=== PATIENT | male | born 1960 | race Caucasian/White ===

== ENCOUNTER 2020-06-25 15:17 | Outpatient (CLI) | payer OTHER, SELFPAY | END 2020-06-25 15:18 | disposition home or self-care (01) | LOC: ANHCOVIDVC 15:17 | PROVIDERS: PCP Family Medicine | DX: Z23 Encounter for immunization (principal) | CPT/HCPCS: 0001A; 91300 ==

== ENCOUNTER → 2020-07-08 13:35 | Outpatient (CLI) | payer OTHER, SELFPAY ==
--- NOTE | ~2020-07-08 | XR_ITS ---
XR lumbar spine 2-3V 07/08/2020 13:53 Indication: Low back pain Procedure: 3 views lumbar spine Comparison: 11/27/2014 Findings: There is grade 1 degenerative spondylolisthesis at L4-5. There are prominent bridging osteo phytes at most levels. There is disc narrowing at L3-4 and L5-S1. There is facet hypertrophy at L4-5. No acute fracture or traumatic malalignment. Mild levocurvature of the lumbar spine. Sacral foramen are symmetric. Impression: 1: Moderate lumbar spondylosis with grade 1 degenerative spondylolisthesis at L4-5. Reviewed, dictated and finalized at location B. Impression: 1: Moderate lumbar spondylosis with grade 1 degenerative spondylolisthesis at L 4-5.
== END ==
PROVIDERS: PCP Family Medicine; Visit Provider Physician Assistant
DX: M47.896 Other spondylosis, lumbar region (principal)
CPT/HCPCS: 72100

== ENCOUNTER 2020-07-16 15:14 | Outpatient (CLI) | payer OTHER, SELFPAY | END 2020-07-16 15:15 | disposition home or self-care (01) | LOC: ANHCOVIDVC 15:14 | PROVIDERS: PCP Family Medicine | DX: Z23 Encounter for immunization (principal) | CPT/HCPCS: 0002A; 91300 ==

== ENCOUNTER 2025-01-02 15:21 | Outpatient (CLI) | payer MEDICARE, SELFPAY ==
--- OUTSIDE RECORDS SUMMARY | 2025-01-02 15:23 | XMS_ITS | Clinical Summary ---
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 Name Role Phone Unavailable Primary Care Provider Unavailabl e Social History Tobacco Use Types Packs/Day Years Used Date Smoking Tobacco: Never Assessed Sex and Gender Information Value Date Recorded Sex Assigned at Not on file Legal Sex Male 12:58 PM CDT Gender Identity Not on file Sexual Orientation Not on file Plan of Treatment Health Maintenance Due Date Last Done Comments Colorectal Cancer Screening Colonoscopy (10 Years) 1960 Annual Physical 08/17/1963 Hepatitis C 1978 DTaP, Tdap and Td Vaccines ( 1 - Tdap) 08/17/1979 Pneumococcal Vaccine: 50+ Years (1 of 1 - PCV) 2010 Zoster Vaccines (1 of 2) 2010 COVID-19 Vaccine (4 - 2024-2 6 season) 2024 04/19/2021, 07/16/2020, 06/25/2020 RSV Immunization or 60+ Years (1 - 1-dose 75+ series) 08/17/2035 Meningococcal B Vaccine Aged Out No l onger eligible based on patient's age to complete this topic Meningococcal Vaccine Aged Out No meenakshi elizabeth eligible based on patient's age to complete this topic RSV Immunizations Under 20 Months Aged Out No longer eligible b ased on patient's age to complete this topic
--- NOTE | 2025-01-02 15:35 | ECHO_ITS ---
Patient Info Name: Kadeem Guerin Age: 64 years : 1960 Gender: Male Ht: 67 in Wt: 370 lbs BSA: 2.92 m2 HR: 96 bpm BP: 133 / 115 mmHg Technical Quality: Fair Exam Date: 01/02/2025 4:05 PM Patient Status: O Admit Date: 01/02/2025 Exam Type: CA echo doppler color flow Complete two-dimensional, color flow and Doppler transthoracic echocardiogram is performed. Ice Cream Mixer: Dede Nava Attending Provider: Denise Alejandre Summary 1. Complete two-dimensional, color flow and Doppler transthoracic echocardiogram is performed. 2. Left ventricular chamber dimension is severely enlarged. 3. Left ventricular systolic function is moderately globally reduced, estimated at 40-45. 4. The left ventricular diastolic function is abnormal. 5. E/e' 17 is elevated. 6. Right ventricular chamber dimension is mildly enlarged. 7. Left atrial chamber dimension is moderately enlarged. 8. Right atrial chamber dimension is mildly enlarged. 9. There is trace aortic valve regurgitation. 10. There is mild to moderate mitral valve regurgitation. 11. There is moderate tricuspid valve regurgitation. 12. Moderate pulmonary hypertension, estimated pulmonary arterial systolic pressure is 49 mmHg. 13. Dilated inferior vena cava with >50% collapse upon inspiration consistent with elevated right atrial pressure, 10 mmHg. Left Ventricle E/e' 17 is elevated. Left ventricular chamber dimension is severely enlarged. Left ventricular systolic function is moderately globally reduced, estimated at 40-45. The left ventricular diastolic function is abnormal. Right Ventricle Right ventricular chamber dimension is mildly enlarged. Right ventricular systolic function is normal and with normal TAPSE 2.3 cm. Left Atria Left atrial chamber dimension is moderately enlarged. Right Atria Right atrial chamber dimension is mildly enlarged. Aortic Valve The aortic valve is trileaflet. There is no aortic valve stenosis. There is trace aortic valve regurgitation. Pulmonic Valve There is no pulmonic regurgitation. Mitral Valve There is no mitral valve stenosis. There is mild to moderate mitral valve regurgitation. Tricuspid Valve There is moderate tricuspid valve regurgitation. Moderate pulmonary hypertension, estimated pulmonary arterial systolic pressure is 49 mmHg. Pericardium/Pleural There is no pericardial effusion. Inferior Vena Cava Dilated inferior vena cava with >50% collapse upon inspiration consistent with elevated right atrial pressure, 10 mmHg. Aorta The aortic root size at the sinus of Valsalva is normal. Left Ventricular Outflow Tract Name Value Normal LVOT 2D LVOT Diameter 2.0 cm LVOT Doppler LVOT Peak Velocity 135 cm/s LVOT Peak Gradient 6 mmHg LVOT Mean Gradient 3 mmHg LVOT VTI 27 cm LVOT VTI/AV VTI Ratio 0.9 LVOT Stroke Volume 86 ml LVOT CO 16.7 l/min LVOT CI 5.7 l/min/m2 Pulmonic Valve Name Value Normal PV Doppler PV Peak Velocity 122 cm/s PV Peak Gradient 6 mmHg Mitral Valve Name Value Normal MV Diastolic Function MV E Peak Velocity 164 cm/s MV A Peak Velocity 130 cm/s MV E/A 1.3 MV Decel Time (PW) 142 ms MV Annular TDI MV E/e' (Septal) 26.5 MV E/e' (Lateral) 13.4 MV E/e' (Average) 19.9 Tricuspid Valve Name Value Normal TV Regurgitation Doppler TR Peak Velocity 312 cm/s TR Peak Gradient 36 mmHg Estimated PAP/RSVP RA Pressure 10 mmHg <=5 PA Systolic Pressure 49 mmHg <36 RV Systolic Pressure 49 mmHg <36 TV Annular TDI TV Lateral [place] s' Velocity 16.3 cm/s >=9.5 Aorta Name Value Normal Ascending Aorta Ao Root Diameter (MM) 3.5 cm Ao Root Diam Index (MM) 1.2 cm/m2 Aortic Valve Name Value Normal AV Doppler AV Peak Velocity 155 cm/s AV Peak Gradient 8 mmHg AV Mean Gradient 5 mmHg AV VTI 32 cm AV Area (Cont Eq VTI) 2.7 cm2 >=3.0 AV Area (Cont Eq Elvin) 2.8 cm2 AV DI (Elvin) 0.87 AV Regurgitation 2D LVOT Area 3.2 cm2 Ventricles Name Value Normal LV Dimensions 2D/MM IVS Diastolic Thickness (2D) 0.9 cm 0.6-1.0 LVID Diastole (2D) 6.6 cm 4.2-5.8 LVIW Diastolic Thickness (2D) 0.8 cm 0.6-1.0 LVID Systole (2D) 5.5 cm 2.5-4.0 LVOT Diameter 2.0 cm LV Mass (2D Cubed) 243.05 g 88.00-224.00 LV Mass Index (2D Cubed) 83 g/m2 49-115 Relative Wall Thickness (2D) 0.25 <=0.42 LV Fractional Shortening/Ejection Fraction 2D/MM LV Fractional Shortening (2D) 17 % 25-43 LV EF (2D Teichholz) 35 % LV Diastolic Volume (4C MOD) 215 ml LV EF (4C MOD) 38 % LV Diastolic Volume (2C MOD) 181 ml LV EF (2C MOD) 49 % LV Diastolic Volume (BP MOD) 204 ml 62-150 LV Diastolic Volume Index (BP MOD) 70 ml/m2 34-74 LV Systolic Volume (BP MOD) 114 ml 21-61 LV Systolic Volume Index (BP MOD) 39 ml/m2 11-31 LV EF (BP MOD) 44 % 52-72 LV Diastolic Length (4C) 9.2 cm LV Systolic Length (4C) 8.0 cm LV Stroke Volume (4C MOD) 82 ml Atria Name Value Normal LA Dimensions LA Dimension (MM) 4.7 cm 3.0-4.0 LA Volume (4C A-L) 67 ml LA Volume (BP A-L) 71 ml RA Dimensions RA Systolic Major [place] Length (4C) 6.2 cm 2.1-2.7 RA Area (4C) 22.4 cm2 <=18.0 Report Signatures
--- NOTE | 2025-01-16 14:48 | WPDHOLTEREM ---
Holter/Event Monitor Holter/Event Monitor Date of procedure: 01/02/25 Holter/Event Procedure: 3-7 Day Holter Monitor Indications: Cardiac arrhthmia Conclusion: 1. 7 days holter monitor on 01/02/25. 2. Predominant rhythm is sinus rhythm. HR range 49-176 bpm; average HR 81 bpm. HR at 49 bpm was on 01/04/25 at 2:39 am. 3. There are frequent premature supraventricular complexes at burden of 12.6%, rare supraventricular couplets, and rare supraventricular triplets. There are 7 episodes of supraventricular tachycardia with fastest at 171 bpm and longest lasting 6 beats. 4. There are intermittent premature ventricular complexes at burden of 8.2%, rare ventricular couplets, longest ventricular bigeminy is 51.2 seconds and longest ventricular trigeminy is 47.8 seconds. There is 1 episode of ventricular tachycardia at 176 bpm lasting 6 beats. 5. No significant pauses greater than 3 seconds. 6. Patient reports 5 episodes of symptoms of shortness of breath which demonstrate sinus rhythm, HR range 94-104 bpm with PAC's and PVC's.
== END 2025-01-02 15:22 | disposition home or self-care (01) ==
PROVIDERS: PCP Family Medicine
DX: R93.1 Abnormal findings on diagnostic imaging of heart and coronary circulation (principal); I49.3 Ventricular premature depolarization; I49.9 Cardiac arrhythmia, unspecified
CPT/HCPCS: 93242; 93306